=== PATIENT | female | born 1970 | race Caucasian/White ===

== ENCOUNTER → 2018-12-21 | Outpatient (CLI) | payer BC ==
--- NOTE | 2018-12-24 10:14 | MM ---
Reason for exam: screening (asymptomatic). Last mammogram was performed 7 years and 2 months ago. History: Took hormonal contraceptives beginning at age 20. Physical Findings: A clinical breast exam by your physician is recommended on an annual basis and results should be correlated with mammographic findings. MG 3D Screening Mammo W/Cad Bilateral CC and MLO view(s) were taken. Prior study comparison: October 22, 2011, mammogram, performed at [facility]. The breast tissue is heterogeneously dense. This may lower the sensitivity of mammography. No significant changes when compared with prior studies. ASSESSMENT: Benign, BI-RAD 2 RECOMMENDATION: Routine screening mammogram of both breasts in 1 year.
== END ==
LOC: RADMAMWWP 12:38
PROVIDERS: ATTEND Family Medicine
DX: Z12.31 Encounter for screening mammogram for malignant neoplasm of breast (principal)
CPT/HCPCS: 77063; 77067

== ENCOUNTER → 2020-05-31 | Outpatient (CLI) | payer BC | END | disposition home or self-care (01) | LOC: LABWHC1 14:37 | PROVIDERS: ATTEND Emergency Medicine | DX: Z20.828 Contact with and (suspected) exposure to other viral communicable diseases (principal) | CPT/HCPCS: U0003; C9803 ==

== ENCOUNTER → 2022-08-12 | Outpatient (CLI) | payer BC ==
[2022-08-12 08:54] VITALS: BP 128/85; PULSE 84; RESP 16; TEMP 97.8
--- NOTE | 2022-08-12 09:46 | P.HPOB ---
History of Present Illness H&P Date: 08/12/22 Chief Complaint: The patient is here for her routine gynecologic exam. This is a 60-year-old with an LMP of 08/06/2022. She is here to establish with this office. It has been about 10 years since her last pelvic exam. She is status post endometrial ablation in 2003. Her menstrual periods have recently become more irregular. They have been about every 3-6 weeks. She does notice some clots. 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 She does experience some hot flashes at night. She can wake up sweating. She denies significant hot flashes during the day. She is uncertain as to whether she has had a tubal ligation at the time of her ablation. At the time of the ablation her ex- was status post vasectomy. Her current has not had a vasectomy. Review of Systems The patient's weight has been stable over the last year. She denies respiratory, cardiac, or G.I. problems. 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 History of Any Multi-Drug Resistant Organisms: None Reported Past Surgical History: Adenoidectomy, Appendectomy, Tonsillectomy, Uterine Ablation Additional Past Surgical History / Comment(s): Endometrial ablation in 2003. Past Anesthesia/Blood Transfusion Reactions: No Reported Reaction Past Psychological History: No Psychological Hx Reported (She denies current depression.) Smoking Status: Current every day smoker (Less than one half pack per day.) Past Alcohol Use History: Occasional (About 3 per week) Past Drug Use History: None Reported Additional History: She has been since 2014 and this is her second marriage. She works in [email or web address] at [employer] in [place]. - Past Family History Mother Family Medical History: Diabetes Mellitus Additional Family Medical History / Comment(s): Maternal grandfather had lung cancer. Father Family Medical History: No Reported History Additional Family Medical History / Comment(s): Paternal grandfather had skin cancer. Medications and Allergies Home Medications Medication Instructions Recorded Confirmed Type Ibuprofen 600 mg PO DIRECTED PRN 08/12/22 08/12/22 History Allergies Allergy/AdvReac Type Severity Reaction Status Date / Time No Known Allergies Allergy Unverified 08/12/22 08:48 Exam Vital Signs Temp Pulse Resp BP Pulse Ox 11/01/22 08:49 97.8 F 84 16 128/85 97 Intake and Output 08/11/22 08/12/22 08/12/22 22:59 06:59 14:59 Other: Weight 62.596 kg Height 5 feet 7 inches, weight 138 pounds, BMI 21.6. This is a well-developed well-nourished white female who is alert and oriented times 3 in no acute distress. HEENT: Within normal limits. NECK: Supple without mass or thyromegaly. CHEST AND LUNGS: Clear to auscultation. HEART: Regular rate and rhythm. BREASTS: Are without mass or discharge. There is central left nipple inversion which the patient states she has had for many years. AXILLARY EXAM: Negative for adenopathy. BACK: Negative for CVA tenderness. ABDOMEN: Soft, nontender, without palpable masses. PELVIC EXAM: Normal external genitalia. Cervix and vagina appear normal. There is a scant amount of old menstrual blood in the back of the vagina consistent with her LMP. There is no unusual discharge. There is no evidence of prolapse. The uterus is retroverted, multiparous nongravid size and nontender. There are no palpable adnexal masses or tenderness. RECTAL EXAM: Rectovaginal exam is negative for mass or tenderness and is negative for occult blood. EXTREMITIES: Nontender. IMPRESSION: 1. 52-year-old perimenopausal female with mild menstrual irregularity and some vasomotor symptoms at night, with normal gynecologic exam. 2. History of previous endometrial ablation. 3. She is uncertain as to whether she has had a tubal sterilization at the time of her ablation. PLAN: 1. Pap smear cotest was performed. 2. Self breast awareness was discussed with the patient. We have also discussed symptoms associated with inflammatory breast cancer. 3. Her last mammogram was in 2017. She is due for a screening mammogram and the order slip was given to the patient for this. 4. The patient will keep a menstrual calendar and call if menstrual problems. 5. I have recommended that she use some form of control such as condoms at this time. She will contact her previous emu farmer, Dr. Avilez, to determine if he did a tubal sterilization at the time of her ablation. 6. I recommended a screening colonoscopy based on her age. I have also recommended that she establish with a primary care physician. She can do the colonoscopy through a primary care physician. 7. She has had the Lv and Lv Covid vaccination. She has had Covid in the past. I have recommended that she look into getting a booster. 8. She was advised to return in one year for her annual well woman exam and as needed.
== END | disposition home or self-care (01) ==
LOC: WWCWWP 08:35
PROVIDERS: ATTEND Obstetrics & Gynecology
DX: Z53.9 Procedure and treatment not carried out, unspecified reason (principal)

== ENCOUNTER → 2022-09-11 | Outpatient (CLI) | payer BC ==
--- NOTE | 2022-09-12 15:43 | MM ---
Reason for Exam: Screening (asymptomatic). Last mammogram was performed 3 year(s) and 9 month(s) ago. Patient History: Menarche at age 18. First Full-Term at age 30. Hormonal Contraceptives, from age 20 until age 29. Risk Values: Sarah 5 year model risk: 1.0%. NCI Lifetime model risk: 9.1%. Prior Study Comparison: 10/22/2011 Screening Mammogram, [facility]. 12/21/2018 Bilateral Screening Mammogram, [facility]. Tissue Density: The breast tissue is extremely dense which could obscure a lesion on mammography. Findings: Analyzed By CAD. Pattern appears stable There is a new 0.5 cm rounded density outer right breast located 3 cm from the nipple. This may be in the upper outer quadrant of the right breast. Additional evaluation is recommended. No suspicious groups of microcalcifications, spiculated or lobular masses, architectural distortion or other secondary signs of malignancy are mammographically apparent. Overall Assessment: Incomplete: need additional imaging evaluation, BI-RAD 0 Management: Diagnostic Breast Ultrasound of the right breast. A negative mammogram report should not preclude additional follow up of suspicious palpable abnormalities. Patient should continue monthly self breast exam. A clinical breast exam by your physician is recommended on an annual basis and results should be correlated with mammographic findings. Electronically signed and approved by: Shiv Fowler D.O. Radiologis
== END | disposition home or self-care (01) ==
LOC: RADMAMWWP 07:37
PROVIDERS: ATTEND Obstetrics & Gynecology
DX: Z12.31 Encounter for screening mammogram for malignant neoplasm of breast (principal)
CPT/HCPCS: 77067

== ENCOUNTER → 2022-09-18 | Outpatient (CLI) | payer BC ==
--- NOTE | 2022-09-18 15:36 | USB ---
Reason for Exam: Additional evaluation requested from abnormal screening. Patient History: Menarche at age 18. First Full-Term at age 30. Hormonal Contraceptives, from age 20 until age 29. Risk Values: Sarah 5 year model risk: 1.0%. NCI Lifetime model risk: 9.1%. Prior Study Comparison: 10/22/2011 Screening Mammogram, [facility]. 12/21/2018 Bilateral Screening Mammogram, [facility]. 09/11/2022 Bilateral MG screening mammo w CAD, [facility]. Findings: The upper outer quadrant of the right breast, the axilla of the right breast and the retroareolar of the right breast were scanned. Targeted right breast ultrasound upper outer quadrant 9:00 to 12 including scanning of the subareolar region and axilla. At the 10:00 position, there is a 7 x 6 x 5 mm benign cyst. At the 11:00 position, 3 cm from the nipple, there is a 9 x 6 x 3 mm benign cyst that corresponds well to the mammographic finding. At the 12:00 position, there is a benign 7 mm cyst 2 cm from the nipple. A couple additional benign cysts measuring less than 5 mm are also noted behind the nipple. No axillary lymphadenopathy. Overall Assessment: Probably benign, BI-RAD 3 Management: Diagnostic Mammogram of the right breast in 6 months. 1. Patient should continue monthly self breast exams. 2. A clinical breast exam by your physician is recommended on an annual basis. 3. This exam should not preclude additional follow-up of suspicious palpable abnormalities. Results were given to the patient verbally at the time of exam. Electronically signed and approved by: Abdifatah Gunter M.D. Radiologist
== END | disposition home or self-care (01) ==
LOC: RADUSWWP 14:43
PROVIDERS: ATTEND Obstetrics & Gynecology
DX: R92.8 Other abnormal and inconclusive findings on diagnostic imaging of breast (principal)

== ENCOUNTER → 2023-03-13 | Outpatient (CLI) | payer BC ==
--- NOTE | 2023-03-13 13:31 | MM ---
Reason for Exam: Follow-up at short interval from prior study. Last screening mammogram was performed 6 month(s) ago. Patient History: Menarche at age 18. First Full-Term at age 30. Patient has history of breast feeding. Hormonal Contraceptives, from age 20 until age 29. Risk Values: Sarah 5 year model risk: 1.0%. NCI Lifetime model risk: 9.1%. Prior Study Comparison: 10/22/2011 Screening Mammogram, [facility]. 12/21/2018 Bilateral Screening Mammogram, [facility]. 09/11/2022 Bilateral MG screening mammo w CAD, [facility]. Tissue Density: Right: The breast tissue is heterogeneously dense. This may lower the sensitivity of mammography. Findings: Analyzed By CAD. Stable circumscribed 9 mm oval mass in the inferior outer right breast. No new suspicious group of microcalcifications. Overall Assessment: Incomplete: need additional imaging evaluation, BI-RAD 0 Management: Diagnostic Breast Ultrasound of the right breast. Targeted ultrasound due to prior abnormal ultrasound. Patient should continue monthly self-breast exams. A clinical breast exam by your physician is recommended on an annual basis. This exam should not preclude additional follow-up of suspicious palpable abnormalities. Note on Sarah scores and lifetime risk: 1. A Sarah score greater than 3% is considered moderate risk. If this is the case, consider specialist referral to assess eligibility for a risk reducing agent. 2. If overall lifetime risk for the development of breast cancer is 20% or higher, the patient may qualify for future screening with alternating mammogram and breast MRI. Electronically signed and approved by: Javier Peterson M.D.
--- NOTE | 2023-03-13 14:09 | USB ---
Reason for Exam: Follow-up at short interval from prior study. Patient History: Menarche at age 18. First Full-Term at age 30. Patient has history of breast feeding. Hormonal Contraceptives, from age 20 until age 29. Risk Values: Sarah 5 year model risk: 1.0%. NCI Lifetime model risk: 9.1%. Technique: Method: Targeted. Prior Study Comparison: 10/22/2011 Screening Mammogram, [facility]. 12/21/2018 Bilateral Screening Mammogram, [facility]. 09/11/2022 Bilateral MG screening mammo w CAD, [facility]. Findings: The upper outer quadrant of the right breast, the axilla of the right breast and the retroareolar of the right breast were scanned. Ultrasound right breast redemonstrates a simple appearing 6 x 10 x 6 mm thin-walled cyst on background dense tissue. No concerning solid mass. Overall Assessment: Benign, BI-RAD 2 Management: Screening Mammogram of both breasts in 6 months. Back on schedule. A clinical breast exam by your physician is recommended on an annual basis and results should be correlated with mammographic findings. This exam should not preclude additional follow-up of suspicious palpable abnormalities. Results were given to the patient verbally at the time of exam. Electronically signed and approved by: Javier Peterson M.D.
== END ==
LOC: RADMAMWWP 12:49
PROVIDERS: ATTEND Obstetrics & Gynecology
DX: R92.8 Other abnormal and inconclusive findings on diagnostic imaging of breast (principal); R92.2 Inconclusive mammogram
CPT/HCPCS: 77061; 77065

== ENCOUNTER → 2024-09-21 | Outpatient (CLI) | payer BC ==
--- NOTE | 2024-09-26 11:17 | MM ---
Reason for Exam: Screening (asymptomatic). Last mammogram was performed 2 year(s) and 0 month(s) ago. Patient History: Menarche at age 18. First Full-Term at age 30. Patient has history of breast feeding. Hormonal Contraceptives, from age 20 until age 29. Last menstrual period: 08/05/2024 Risk Values: Sarah 5 year model risk: 1.1%. NCI Lifetime model risk: 8.8%. Prior Study Comparison: 12/21/2018 Bilateral Screening Mammogram, [facility]. 09/11/2022 Bilateral MG screening mammo w CAD, [facility]. 03/13/2023 Right MG 3D diag mammo w/cad RT, [facility]. Tissue Density: The breasts are heterogeneously dense, which may obscure small masses. Findings: Analyzed By CAD. Right breast: There is no suspicious group of microcalcifications or new suspicious mass. Left breast: There is no suspicious group of microcalcifications or new suspicious mass. Overall Assessment: Negative, BI-RAD 1 Management: Screening Mammogram of both breasts in [address] [facility] will attempt to contact patient to return for supplemental views and ultrasound if indicated. Patient should continue monthly self-breast exams. A clinical breast exam by your physician is recommended on an annual basis. This exam should not preclude additional follow-up of suspicious palpable abnormalities. Note on Sarah scores and lifetime risk: 1. A Sarah score greater than 3% is considered moderate risk. If this is the case, consider specialist referral to assess eligibility for a risk reducing agent. 2. If overall lifetime risk for the development of breast cancer is 20% or higher, the patient may qualify for future screening with alternating mammogram and breast MRI. [facility], , 09/26/2024 11:14 AM. Electronically signed and approved by: Mohsen Madrid DO
== END | disposition home or self-care (01) ==
LOC: RADMAMWWP 08:59
PROVIDERS: ATTEND Family Medicine
DX: Z12.31 Encounter for screening mammogram for malignant neoplasm of breast (principal); R92.333 Mammographic heterogeneous density, bilateral breasts
CPT/HCPCS: 77063; 77067